=== PATIENT | female | born 1985 | race Caucasian/White ===

== ENCOUNTER 2017-10-02 21:02 | Inpatient (IN) | payer BC ==
[~2017-10-02] VITALS: Ht 162.6 cm; Wt 62.6 kg
[2017-10-02] MEDS ORDERED: diphenhydrAMINE ORAL ELIXIR 12.5 MG/5 ML ML ONE (22:45)
[2017-10-02] MEDS ORDERED: PROCHLORPERAZINE 10 MG/2 ML VIAL. ONE (22:45)
[2017-10-02] MEDS ORDERED: MORPHINE SULFATE 4 MG/ML VIAL. ONE (22:45)
[2017-10-02] MEDS ORDERED: diphenhydrAMINE 50 MG/ML VIAL ONE (22:46)
[2017-10-03 01:51] LABS: CALCIUM 10.3 mg/dL (8.5-10.1); CREATININE 1.2 mg/dL (0.6-1.0); GFR 51.4
[2017-10-03 01:56] LABS: POTASSIUM 2.5 mmol/L (3.5-5.1)
[2017-10-03] MEDS ORDERED: ONDANSETRON PF 4 MG/2 ML VIAL. IV ONE (02:00)
[2017-10-03] MEDS ORDERED: IV NORMAL SALINE 1000ML BAG 1,000 ML IV ONE (02:00)
[2017-10-03] MEDS ORDERED: POTASSIUM CHLORIDE 20 MEQ/15 ML ORAL LIQUID. PO ONE (02:00)
[2017-10-03 02:01] LABS: HEMATOCRIT 50.8 % (36.0-47.0); MEAN CORPUSCULAR HEMOGLOBIN 34 pg (25-35); MEAN CORPUSCULAR HGB CONC 34 g/dL (31-37); MEAN CORPUSCULAR VOLUME 100 fL (79-100); PLATELET COUNT 532 x10^3/uL (140-400); RED BLOOD COUNT 5.06 x10^6/uL (3.50-5.40); RED CELL DISTRIBUTION WIDTH 14.9 % (11.5-14.5); WHITE BLOOD COUNT 21.6 x10^3/uL (4.0-11.0)
[2017-10-03 02:02] LABS: BASO % 0 % (0-3); EOS % 0 % (0-3); LYMPH # 1.6 x10^3/uL (1.0-4.8); LYMPH % 8 % (24-48); MONO # 1.4 x10^3/uL (0.0-1.1); MONO % 6 % (0-9); NEUT # 18.6 x10^3uL (1.8-7.7); NEUT % 86 % (31-73)
[2017-10-03 02:13] LABS: BILIRUBIN,URINE LARGE (NEG); CLARITY,URINE CLEAR; COLOR,URINE AMBER
[2017-10-03 02:14] LABS: AMORPHOUS SEDIMENT,UR PRESENT /HPF; BACTERIA,URINE FEW /HPF (0-FEW); HYALINE CASTS, URINE MANY /HPF; NITRITE,URINE NEGATIVE (NEG); PROTEIN,URINE 100 mg/dL (NEG-TRACE); SQUAMOUS EPITHELIAL CELL,UR FEW /LPF; WBC,URINE OCC /HPF (0-4)
[2017-10-03] MEDS ORDERED: POTASSIUM CHLORIDE 20MEQ 50 ML IV ONE (02:45)
[2017-10-03 02:47] LABS: % BANDS 1 % (0-9); % LYMPHS 7 % (24-48); % MONOS 3 % (0-10); % SEGS 89 % (35-66); PLT ESTIMATE ADEQUATE (ADEQUATE)
[2017-10-03] MEDS: POTASSIUM CHLORIDE 10MEQ 100 ML IV SCH ×6 (03:00→11:30)
--- NOTE | 2017-10-03 03:10 | PHYS DOC ---
Adult General Chief Complaint Chief Complaint: NAUSEA/VOMITING/DIARRHA HPI HPI Patient is a 32 year old female who presents with dehydration. The patient complains of nausea and vomiting. She states she was out in the sun all day 2 days earlier. She does describe prior episodes where she has required admission for hypokalemia secondary to severe dehydration. The patient feels that her symptoms today may represent a similar presentation. She has been unable to keep down any food or fluids. She complains of bilious emesis over the last 2-3 days. Review of Systems Review of Systems Constitutional: Denies fever or chills Eyes: Denies change in visual acuity HENT: Denies nasal congestion or sore throat Respiratory: Denies cough or shortness of breath Cardiovascular: No additional information not addressed in HPI GI: epigastric pain. nausea/emesis : Denies dysuria Musculoskeletal: Denies back pain Integument: Denies rash or skin lesions Neurologic: Denies headache Endocrine: Denies polyuria All other systems were reviewed and found to be within normal limits, except as documented in this note. Current Medications Current Medications Current Medications Medications (Trade) Dose Ordered Sig/Amalia Start Time Stop Time Status Last Admin Dose Admin Ceftriaxone Sodium 50 ml @ 100 mls/hr 1X ONCE 10/03/17 02:00 10/03/17 02:29 DC 10/03/17 02:11 100 MLS/HR Ondansetron HCl (Zofran) 4 mg 1X ONCE 10/03/17 02:00 10/03/17 02:01 DC 10/03/17 02:10 4 MG Potassium Chloride/Water 50 ml @ 50 mls/hr 1X ONCE 10/03/17 02:45 10/03/17 03:44 UNV Potassium Chloride (KCl Oral Soln) 40 meq 1X ONCE 10/03/17 02:00 10/03/17 02:01 DC Sodium Chloride 1,000 ml @ 1,000 mls/hr 1X ONCE 10/03/17 02:00 10/03/17 02:59 DC 10/03/17 03:05 1,000 MLS/HR Allergies Allergies Allergies Coded Allergies Type Severity Reaction Last Updated Verified No Known Drug Allergies 10/03/17 No Physical Exam Physical Exam Constitutional: Well developed, well nourished, no acute distress, non-toxic appearance HENT: Normocephalic, atraumatic, bilateral external ears normal, oropharynx moist Eyes: PERRLA, EOMI, conjunctiva normal Neck: Normal range of motion, no tenderness Cardiovascular:Heart rate regular rhythm Lungs & Thorax: Bilateral breath sounds clear to auscultation Abdomen: Bowel sounds normal, soft, diffusely TTP over epigastrium Skin: Warm, dry, no erythema Extremities: No edema Neurologic: Alert and oriented X 3 Psychologic: Affect normal Current Patient Data Lab Values Laboratory Tests Test 10/02/17 22:00 White Blood Count 21.6 x10^3/uL (4.0-11.0) H Red Blood Count 5.06 x10^6/uL (3.50-5.40) Hemoglobin 17.0 g/dL (12.0-15.5) H Hematocrit 50.8 % (36.0-47.0) H Mean Corpuscular Volume 100 fL (79-100) Mean Corpuscular Hemoglobin 34 pg (25-35) Mean Corpuscular Hemoglobin Concent 34 g/dL (31-37) Red Cell Distribution Width 14.9 % (11.5-14.5) H Platelet Count 532 x10^3/uL (140-400) H Neutrophils (%) (Auto) 86 % (31-73) H Lymphocytes (%) (Auto) 8 % (24-48) L Monocytes (%) (Auto) 6 % (0-9) Eosinophils (%) (Auto) 0 % (0-3) Basophils (%) (Auto) 0 % (0-3) Neutrophils # (Auto) 18.6 x10^3uL (1.8-7.7) H Lymphocytes # (Auto) 1.6 x10^3/uL (1.0-4.8) Monocytes # (Auto) 1.4 x10^3/uL (0.0-1.1) H Eosinophils # (Auto) 0.0 x10^3/uL (0.0-0.7) Basophils # (Auto) 0.0 x10^3/uL (0.0-0.2) Segmented Neutrophils % 89 % (35-66) H Band Neutrophils % 1 % (0-9) Lymphocytes % 7 % (24-48) L Monocytes % 3 % (0-10) Platelet Estimate Adequate (ADEQUATE) Urine Collection Type Unknown Urine Color Katherin Urine Clarity Clear Urine pH 6.0 Urine Specific [place] >=1.030 Urine Protein 100 mg/dL (NEG-TRACE) Urine Glucose (UA) Negative mg/dL (NEG) Urine Ketones (Stick) 15 mg/dL (NEG) Urine Blood Small (NEG) Urine Nitrite Negative (NEG) Urine Bilirubin Large (NEG) Urine Urobilinogen Dipstick 1.0 mg/dL (0.2 mg/dL) Urine Leukocyte Esterase Negative (NEG) Urine RBC 3-5 /HPF (0-2) Urine WBC Occ /HPF (0-4) Urine Squamous Epithelial Cells Few /LPF Urine Amorphous Sediment Present /HPF Urine Bacteria Few /HPF (0-FEW) Urine Hyaline Casts Many /HPF Urine Mucus Marked /LPF Sodium Level 136 mmol/L (136-145) Potassium Level 2.5 mmol/L (3.5-5.1) *L Chloride Level 90 mmol/L (98-107) L Carbon Dioxide Level 33 mmol/L (21-32) H Anion Gap 13 (6-14) Blood Urea Nitrogen 13 mg/dL (7-20) Creatinine 1.2 mg/dL (0.6-1.0) H Estimated GFR (Cockcroft-Gault) 51.4 Glucose Level 128 mg/dL (70-99) H Calcium Level 10.3 mg/dL (8.5-10.1) H Total Bilirubin 0.6 mg/dL (0.2-1.0) Direct Bilirubin 0.2 mg/dL (0.0-0.2) Aspartate Amino Transferase (AST) 77 U/L (15-37) H Alanine Aminotransferase (ALT) 32 U/L (14-59) Alkaline Phosphatase 57 U/L (46-116) Creatine Kinase 1724 U/L (26-192) H Total Protein 9.9 g/dL (6.4-8.2) H Albumin 4.7 g/dL (3.4-5.0) Laboratory Tests 10/02/17 22:00 Laboratory Tests 10/02/17 22:00 EKG EKG [] Radiology/Procedures Radiology/Procedures RUQ US: unremarkable. Course & Med Decision Making Course & Med Decision Making Pertinent Labs and Imaging studies reviewed. (See chart for details) Patient was evaluated in the emergency department for intractable nausea and vomiting. She had attempted to use Phenergan at home without relief of her symptoms. She was found to have a potassium of 2.5. Her creatinine kinase was mildly elevated, over 1100. In the emergency department, she was given 3 L of normal saline. She was eventually able to urinate. She had a white blood cell count but no overt source for infection was identified. Prior to return of urine , she was given 1 g of Rocephin. Attempts were made to give by mouth potassium replacement in the ER but the patient was unable to tolerate this. Subsequently , she is admitted to the hospital and IV potassium is initiated. The patient had bilirubin her urine. LFTs are added to her lab panel along with right upper quadrant ultrasound. Overall, her abdominal exam is benign. Dragon Disclaimer Dragon Disclaimer This electronic medical record was generated, in whole or in part, using a voice recognition dictation system. Departure Departure Referrals: NO PCP (PCP) ARMIDA COUCH DO Oct 03, 2017 03:09
[2017-10-03] MEDS ORDERED: ONDANSETRON PF 4 MG/2 ML VIAL. IV PRN (03:15)
[2017-10-03] MEDS: IV NORMAL SALINE 1000ML BAG 1,000 ML IV SCH ×4 (03:15→19:27)
[2017-10-03 03:29] LABS: ALBUMIN 4.7 g/dL (3.4-5.0); DIRECT BILIRUBIN 0.2 mg/dL (0.0-0.2); TOTAL BILIRUBIN 0.6 mg/dL (0.2-1.0); TOTAL PROTEIN 9.9 g/dL (6.4-8.2)
[2017-10-03 03:55] VITALS: BP 146/92
[2017-10-03] MEDS: MORPHINE SULFATE 4 MG/ML VIAL. IV PRN ×5 (04:07→20:50)
--- NOTE | 2017-10-03 04:30 | RAD ---
Right upper quadrant abdominal ultrasound History: VOMITING Comparison: None. Technique: Transabdominal ultrasound images are obtained. Findings: The pancreas is not well visualized due to overlying bowel gas. Liver is normal in echogenicity. Right hepatic lobe measures 17.6 cm, normal. No focal hepatic masses are identified. Portal flow is hepatopedal. Gallbladder is surgically absent. Common bile duct caliber is normal measuring 5 mm in diameter. The right kidney measures 11.1 cm in length and is without evidence of obstruction or stone. IVC is unremarkable. IMPRESSION: Unremarkable right upper quadrant ultrasound. Electronically signed by: Fuentes Strickland MD (10/03/2017 4:27 AM) [facility]
[2017-10-03] MEDS ORDERED: AMIT10TA PO (07:27)
[2017-10-03] MEDS ORDERED: FENO160T PO (07:27)
[2017-10-03] MEDS ORDERED: DEXL60CA2 PO (07:27)
[2017-10-03] MEDS ORDERED: CITA20TA6 PO (07:27)
[2017-10-03 07:38] VITALS: BP 120/88
[2017-10-03] MEDS: FENOFIBRATE,MICRONIZED 134 MG CAPSULE PO SCH (09:00)
[2017-10-03] MEDS: CITALOPRAM 20 MG TABLET. PO SCH (09:00)
[2017-10-03] MEDS: NICOTINE 21MG PATCH. TD SCH (10:14)
[2017-10-03] MEDS: POTASSIUM CHLORIDE 20 MEQ TABLET.ER. PO SCH ×2 (10:15→17:00)
[2017-10-03] MEDS: PANTOPRAZOLE 40 MG TABLET.DR. PO SCH (10:15)
[2017-10-03] MEDS: ONDANSETRON PF 4 MG/2 ML VIAL. IV PRN ×3 (10:28→23:14)
[2017-10-03 11:02] VITALS: BP 122/91
--- NOTE | 2017-10-03 11:29 | PDOC1 ---
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 Some diarrhea with voluminous vomiting but no fever. No recent sick contacts or ill travels. 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 Nontoxic appearing but admitted because of severe signs of dehydration with hypernatremia at 156, critical hypokalemia 2.8, elevated creatinine 1.2 with a GFR of 50s. Otherwise no known significant past medical history. She did have history of cholecystectomy some 4 or 5 years ago and tends to have some loose stool since then. Maybe history of lupus in the mother. She feels better and is actually very thirsty and is munching on ice chips. She feels hesitant to start a regular diet but is tolerating liquid diet fine. I will increase potassium supplements, increase IV fluid rate and liquid diet then ADA T. I did check for JOHN, TSH and ESR. One more night of IV fluids and home tomorrow if labs and clinically continues to do better Does admit that she went outdoors and did not adequately take any water,she felt dehydrated herself Past Medical History Cardiovascular: No pertinent hx Pulmonary: No pertinent hx GI: No pertinent hx Heme/Onc: No pertinent hx Hepatobiliary: No pertinent hx Psych: No pertinent hx, Depression Rheumatologic: No pertinent hx Infectious disease: No pertinent hx ENT: No pertinent hx Renal/: No pertinent hx Endocrine: No pertinent hx Dermatology: No pertinent hx Past Surgical History Past Surgical History: Cholecystectomy Family History Family History: Hypertension, Other (Lupus in the mother) Social History Smoke: No ALCOHOL: none Drugs: None Current Problem List Problem List Problems Medical Problems: (1) Dehydration Status: Acute (2) Hypokalemia Status: Acute (3) Rhabdomyolysis Status: Acute Current Medications Current Medications Current Medications Sodium Chloride 1,000 ml @ 1,000 mls/hr 1X ONCE IV Last administered on at 03:05; Start 10/03/17 at 02:00; Stop 10/03/17 at 02:59; Status DC Ceftriaxone Sodium 50 ml @ 100 mls/hr 1X ONCE IV Last administered on at 02:11; Start 10/03/17 at 02:00; Stop 10/03/17 at 02:29; Status DC Potassium Chloride (KCl Oral Soln) 40 meq 1X ONCE PO ; Start 10/03/17 at 02:00 ; Stop 10/03/17 at 02:01; Status DC Ondansetron HCl (Zofran) 4 mg 1X ONCE IV Last administered on 10/03/17at 02:10 ; Start 10/03/17 at 02:00; Stop 10/03/17 at 02:01; Status DC Potassium Chloride/Water 50 ml @ 50 mls/hr 1X ONCE IV ; Start 10/03/17 at 02:45 ; Stop 10/03/17 at 03:44; Status UNV Potassium Chloride/Water 100 ml @ 100 mls/hr Q1H IV Last administered on at 04:08; Start 10/03/17 at 03:00; Stop 10/03/17 at 04:59; Status DC Ondansetron HCl (Zofran) 4 mg PRN Q8HRS PRN IV NAUSEA/VOMITING Last administered on 10/03/17at 04:07; Start 10/03/17 at 03:15; Stop 10/03/17 at 08:43 ; Status DC Morphine Sulfate (Morphine Sulfate) 4 mg PRN Q2HR PRN IV PAIN Last administered on 10/03/17at 07:20; Start 10/03/17 at 03:15; Stop 10/03/17 at 08:30 ; Status DC Sodium Chloride 1,000 ml @ 150 mls/hr Q6H40M IV ; Start 10/03/17 at 03:15; Stop 10/04/17 at 03:14 Potassium Chloride/Water 100 ml @ 100 mls/hr Q1H IV Last administered on at 10:12; Start 10/03/17 at 05:00; Stop 10/03/17 at 09:01; Status DC Nicotine (Nicoderm Cq 21mg) 1 patch DAILY TD Last administered on 10/03/17at 10: 14; Start 10/03/17 at 09:00 Morphine Sulfate (Morphine Sulfate) 4 mg PRN Q2HR PRN IV PAIN SEVERE Last administered on 10/03/17at 10:28; Start 10/03/17 at 08:30 Ondansetron HCl (Zofran) 4 mg PRN Q6HRS PRN IV NAUSEA/VOMITING Last administered on 10/03/17at 10:28; Start 10/03/17 at 08:45 Potassium Chloride (Klor-Con) 40 meq BIDWMEALS PO Last administered on at 10:15; Start 10/03/17 at 09:00 Amitriptyline HCl (Elavil) 10 mg QHS PO ; Start 10/03/17 at 21:00 Citalopram Hydrobromide (CeleXA) 20 mg DAILY PO ; Start 10/03/17 at 09:00 Pantoprazole Sodium (Protonix) 40 mg DAILYAC PO Last administered on 10/03/17at 10:15; Start 10/03/17 at 09:00 Fenofibrate (Lofibra) 134 mg DAILY PO ; Start 10/03/17 at 09:00 Diphenhydramine HCl (Benadryl Oral Elixir) 12.5 mg STK-MED ONCE .ROUTE ; Start 10/02/17 at 22:45; Stop 10/03/17 at 10:22; Status DC Prochlorperazine Edisylate (Compazine) 10 mg STK-MED ONCE .ROUTE ; Start at 22:45; Stop 10/03/17 at 10:22; Status DC Morphine Sulfate (Morphine Sulfate) 4 mg STK-MED ONCE .ROUTE ; Start 10/02/17 at 22:45; Stop 10/03/17 at 10:22; Status DC Diphenhydramine HCl (Benadryl) 50 mg STK-MED ONCE .ROUTE ; Start 10/02/17 at 22: 46; Stop 10/03/17 at 10:22; Status DC Active Scripts Active Reported Dexilant (Dexlansoprazole) 60 Mg Cap. 1 Cap PO DAILY Fenofibrate 160 Mg Tablet 1 Tab PO DAILY Amitriptyline Hcl 10 Mg Tablet 1 Tab PO QHS Citalopram Hbr (Citalopram Hydrobromide) 20 Mg Tablet 1 Tab PO DAILY Allergies Allergies: Coded Allergies: Corticosteroids (Glucocorticoids) (Verified Allergy, Unknown, 10/03/17) Penicillins (Verified Allergy, Unknown, 10/03/17) ROS Review of System as per , the rest of ROS 14 point negative Physical Exam General: Alert, Oriented X3, Cooperative, No acute distress HEENT: Atraumatic, PERRLA, Other (dry lips and tongue) Lungs: Clear to auscultation, Normal air movement Heart: S1S2, RRR, no thrills, no rubs, no gallops, no murmurs Cardiovascular: S1, S2 Breasts: Normal, Rt breast nml w/o mass, Lt breast nml w/o mass, Nipples normal Abdomen: Normal bowel sounds, Soft, No tenderness, No hepatosplenomegaly, No masses Rectal Exam: not examined PELVIC: Nml ext genitalia Extremities: No clubbing, No cyanosis, No edema, Normal pulses, No tenderness/ swelling Skin: No rashes, No breakdown, No significant lesion Neuro: Normal gait, Normal speech, Strength at 5/5 X4 ext, Normal tone, Sensation intact, Cranial nerves 3-12 NL, Reflexes 2+ Psych/Mental Status: Mental status NL, Mood NL Vitals Vitals Vital Signs Date Time Temp Pulse Resp B/P (MAP) Pulse Ox O2 Delivery O2 Flow Rate FiO2 10/03/17 11:02 97.9 81 18 122/91 (101) 98 Room Air 97.9 Labs Labs Laboratory Tests Test 10/02/17 22:00 10/03/17 09:13 White Blood Count 21.6 x10^3/uL (4.0-11.0) Red Blood Count 5.06 x10^6/uL (3.50-5.40) Hemoglobin 17.0 g/dL (12.0-15.5) Hematocrit 50.8 % (36.0-47.0) Mean Corpuscular Volume 100 fL (79-100) Mean Corpuscular Hemoglobin 34 pg (25-35) Mean Corpuscular Hemoglobin Concent 34 g/dL (31-37) Red Cell Distribution Width 14.9 % (11.5-14.5) Platelet Count 532 x10^3/uL (140-400) Neutrophils (%) (Auto) 86 % (31-73) Lymphocytes (%) (Auto) 8 % (24-48) Monocytes (%) (Auto) 6 % (0-9) Eosinophils (%) (Auto) 0 % (0-3) Basophils (%) (Auto) 0 % (0-3) Neutrophils # (Auto) 18.6 x10^3uL (1.8-7.7) Lymphocytes # (Auto) 1.6 x10^3/uL (1.0-4.8) Monocytes # (Auto) 1.4 x10^3/uL (0.0-1.1) Eosinophils # (Auto) 0.0 x10^3/uL (0.0-0.7) Basophils # (Auto) 0.0 x10^3/uL (0.0-0.2) Segmented Neutrophils % 89 % (35-66) Band Neutrophils % 1 % (0-9) Lymphocytes % 7 % (24-48) Monocytes % 3 % (0-10) Platelet Estimate Adequate (ADEQUATE) Urine Collection Type Unknown Urine Color Katherin Urine Clarity Clear Urine pH 6.0 Urine Specific [place] >=1.030 Urine Protein 100 mg/dL (NEG-TRACE) Urine Glucose (UA) Negative mg/dL (NEG) Urine Ketones (Stick) 15 mg/dL (NEG) Urine Blood Small (NEG) Urine Nitrite Negative (NEG) Urine Bilirubin Large (NEG) Urine Urobilinogen Dipstick 1.0 mg/dL (0.2 mg/dL) Urine Leukocyte Esterase Negative (NEG) Urine RBC 3-5 /HPF (0-2) Urine WBC Occ /HPF (0-4) Urine Squamous Epithelial Cells Few /LPF Urine Amorphous Sediment Present /HPF Urine Bacteria Few /HPF (0-FEW) Urine Hyaline Casts Many /HPF Urine Mucus Marked /LPF Sodium Level 136 mmol/L (136-145) Potassium Level 2.5 mmol/L (3.5-5.1) Chloride Level 90 mmol/L (98-107) Carbon Dioxide Level 33 mmol/L (21-32) Anion Gap 13 (6-14) Blood Urea Nitrogen 13 mg/dL (7-20) Creatinine 1.2 mg/dL (0.6-1.0) Estimated GFR (Cockcroft-Gault) 51.4 Glucose Level 128 mg/dL (70-99) Calcium Level 10.3 mg/dL (8.5-10.1) Total Bilirubin 0.6 mg/dL (0.2-1.0) Direct Bilirubin 0.2 mg/dL (0.0-0.2) Aspartate Amino Transf (AST/SGOT) 77 U/L (15-37) Alanine Aminotransferase (ALT/SGPT) 32 U/L (14-59) Alkaline Phosphatase 57 U/L (46-116) Creatine Kinase 1724 U/L (26-192) Total Protein 9.9 g/dL (6.4-8.2) Albumin 4.7 g/dL (3.4-5.0) Erythrocyte Sedimentation Rate 4 (0-25) Thyroid Stimulating Hormone (TSH) 3.137 uIU/mL (0.358-3.74) Laboratory Tests Test 10/02/17 22:00 10/03/17 09:13 White Blood Count 21.6 x10^3/uL (4.0-11.0) Red Blood Count 5.06 x10^6/uL (3.50-5.40) Hemoglobin 17.0 g/dL (12.0-15.5) Hematocrit 50.8 % (36.0-47.0) Mean Corpuscular Volume 100 fL (79-100) Mean Corpuscular Hemoglobin 34 pg (25-35) Mean Corpuscular Hemoglobin Concent 34 g/dL (31-37) Red Cell Distribution Width 14.9 % (11.5-14.5) Platelet Count 532 x10^3/uL (140-400) Neutrophils (%) (Auto) 86 % (31-73) Lymphocytes (%) (Auto) 8 % (24-48) Monocytes (%) (Auto) 6 % (0-9) Eosinophils (%) (Auto) 0 % (0-3) Basophils (%) (Auto) 0 % (0-3) Neutrophils # (Auto) 18.6 x10^3uL (1.8-7.7) Lymphocytes # (Auto) 1.6 x10^3/uL (1.0-4.8) Monocytes # (Auto) 1.4 x10^3/uL (0.0-1.1) Eosinophils # (Auto) 0.0 x10^3/uL (0.0-0.7) Basophils # (Auto) 0.0 x10^3/uL (0.0-0.2) Segmented Neutrophils % 89 % (35-66) Band Neutrophils % 1 % (0-9) Lymphocytes % 7 % (24-48) Monocytes % 3 % (0-10) Platelet Estimate Adequate (ADEQUATE) Urine Collection Type Unknown Urine Color Katherin Urine Clarity Clear Urine pH 6.0 Urine Specific [place] >=1.030 Urine Protein 100 mg/dL (NEG-TRACE) Urine Glucose (UA) Negative mg/dL (NEG) Urine Ketones (Stick) 15 mg/dL (NEG) Urine Blood Small (NEG) Urine Nitrite Negative (NEG) Urine Bilirubin Large (NEG) Urine Urobilinogen Dipstick 1.0 mg/dL (0.2 mg/dL) Urine Leukocyte Esterase Negative (NEG) Urine RBC 3-5 /HPF (0-2) Urine WBC Occ /HPF (0-4) Urine Squamous Epithelial Cells Few /LPF Urine Amorphous Sediment Present /HPF Urine Bacteria Few /HPF (0-FEW) Urine Hyaline Casts Many /HPF Urine Mucus Marked /LPF Sodium Level 136 mmol/L (136-145) Potassium Level 2.5 mmol/L (3.5-5.1) Chloride Level 90 mmol/L (98-107) Carbon Dioxide Level 33 mmol/L (21-32) Anion Gap 13 (6-14) Blood Urea Nitrogen 13 mg/dL (7-20) Creatinine 1.2 mg/dL (0.6-1.0) Estimated GFR (Cockcroft-Gault) 51.4 Glucose Level 128 mg/dL (70-99) Calcium Level 10.3 mg/dL (8.5-10.1) Total Bilirubin 0.6 mg/dL (0.2-1.0) Direct Bilirubin 0.2 mg/dL (0.0-0.2) Aspartate Amino Transf (AST/SGOT) 77 U/L (15-37) Alanine Aminotransferase (ALT/SGPT) 32 U/L (14-59) Alkaline Phosphatase 57 U/L (46-116) Creatine Kinase 1724 U/L (26-192) Total Protein 9.9 g/dL (6.4-8.2) Albumin 4.7 g/dL (3.4-5.0) Erythrocyte Sedimentation Rate 4 (0-25) Thyroid Stimulating Hormone (TSH) 3.137 uIU/mL (0.358-3.74) VTE Prophylaxis Ordered VTE Prophylaxis Devices: Yes VTE Pharmacological Prophylaxi: Yes Assessment/Plan Assessment/Plan Severe dehydration Hypernatremia Critical hypokalemia secondary to GI loss AK I VMN, prerenal, secondary to GI losses Depression NOS Plan: Increase IV fluid to 1 50 mL an hour Check JOHN TSH and a sedimentation rate just because (hx lupus in mother and hx vomiting in past but not to this extent) Increased potassium to 40 by mouth twice a day Labs tomorrow If labs are better and continues to do clinically well at home tomorrow GI soft for now then TONE Dickson RN, MD Oct 03, 2017 11:29
[2017-10-03 15:59] VITALS: BP 120/83
[2017-10-03 19:39] VITALS: BP 141/97
[2017-10-03] MEDS ORDERED: AMITRIPTYLINE HCL 10 MG TABLET. PO SCH (21:00)
[2017-10-03 23:56] VITALS: BP 133/94
[2017-10-04] MEDS: IV NORMAL SALINE 1000ML BAG 1,000 ML IV SCH (02:17)
[2017-10-04 03:20] VITALS: BP 149/91
[2017-10-04 07:00] VITALS: BP 140/98
[2017-10-04] MEDS: POTASSIUM CHLORIDE 20 MEQ TABLET.ER. PO SCH (07:45)
[2017-10-04] MEDS: FENOFIBRATE,MICRONIZED 134 MG CAPSULE PO SCH (07:46)
[2017-10-04] MEDS: CITALOPRAM 20 MG TABLET. PO SCH (07:46)
[2017-10-04] MEDS: NICOTINE 21MG PATCH. TD SCH (07:46)
[2017-10-04] MEDS: PANTOPRAZOLE 40 MG TABLET.DR. PO SCH (07:46)
[2017-10-04] MEDS: ONDANSETRON PF 4 MG/2 ML VIAL. IV PRN (07:58)
[2017-10-04] MEDS: MORPHINE SULFATE 4 MG/ML VIAL. IV PRN (09:05)
[2017-10-04 09:19] LABS: BASO # 0.1 x10^3/uL (0.0-0.2); BASO % 1 % (0-3); EOS % 0 % (0-3); HEMATOCRIT 39.8 % (36.0-47.0); HEMOGLOBIN 13.3 g/dL (12.0-15.5); LYMPH # 2.6 x10^3/uL (1.0-4.8); LYMPH % 21 % (24-48); MEAN CORPUSCULAR HEMOGLOBIN 34 pg (25-35); MEAN CORPUSCULAR HGB CONC 33 g/dL (31-37); MEAN CORPUSCULAR VOLUME 101 fL (79-100); MONO # 0.9 x10^3/uL (0.0-1.1); MONO % 7 % (0-9); NEUT # 9.3 x10^3uL (1.8-7.7); NEUT % 72 % (31-73); PLATELET COUNT 373 x10^3/uL (140-400); RED BLOOD COUNT 3.95 x10^6/uL (3.50-5.40); WHITE BLOOD COUNT 12.9 x10^3/uL (4.0-11.0)
[2017-10-04 09:28] LABS: CALCIUM 7.9 mg/dL (8.5-10.1); CREATININE 0.7 mg/dL (0.6-1.0); GFR 95.8; POTASSIUM 3.1 mmol/L (3.5-5.1)
--- NOTE | 2017-10-04 11:52 | PDOC3 ---
Discharge Summary Visit Information Date of Admission: Oct 03, 2017 Date of Discharge: Oct 04, 2017 Admitting Diagnosis Comment: Severe dehydration Hypernatremia Critical hypokalemia secondary to GI loss AK I VMN, prerenal, secondary to GI losses Depression NOS Final Diagnosis Problems Medical Problems: (1) Dehydration Status: Acute (2) Hypokalemia Status: Acute (3) Rhabdomyolysis Status: Acute Brief Hospital Course Allergies Allergies Coded Allergies Type Severity Reaction Last Updated Verified Corticosteroids (Glucocorticoids) Allergy Unknown 10/03/17 Yes Penicillins Allergy Unknown 10/03/17 Yes Vital Signs Vital Signs Date Time Temp Pulse Resp B/P (MAP) Pulse Ox O2 Delivery O2 Flow Rate FiO2 10/04/17 10:20 99 Room Air 10/04/17 07:00 98.2 75 16 140/98 (112) 98.2 Lab Results Laboratory Tests Test 10/02/17 22:00 10/03/17 09:13 10/04/17 08:52 White Blood Count 21.6 x10^3/uL (4.0-11.0) 12.9 x10^3/uL (4.0-11.0) Red Blood Count 5.06 x10^6/uL (3.50-5.40) 3.95 x10^6/uL (3.50-5.40) Hemoglobin 17.0 g/dL (12.0-15.5) 13.3 g/dL (12.0-15.5) Hematocrit 50.8 % (36.0-47.0) 39.8 % (36.0-47.0) Mean Corpuscular Volume 100 fL (79-100) 101 fL (79-100) Mean Corpuscular Hemoglobin 34 pg (25-35) 34 pg (25-35) Mean Corpuscular Hemoglobin Concent 34 g/dL (31-37) 33 g/dL (31-37) Red Cell Distribution Width 14.9 % (11.5-14.5) 15.0 % (11.5-14.5) Platelet Count 532 x10^3/uL (140-400) 373 x10^3/uL (140-400) Neutrophils (%) (Auto) 86 % (31-73) 72 % (31-73) Lymphocytes (%) (Auto) 8 % (24-48) 21 % (24-48) Monocytes (%) (Auto) 6 % (0-9) 7 % (0-9) Eosinophils (%) (Auto) 0 % (0-3) 0 % (0-3) Basophils (%) (Auto) 0 % (0-3) 1 % (0-3) Neutrophils # (Auto) 18.6 x10^3uL (1.8-7.7) 9.3 x10^3uL (1.8-7.7) Lymphocytes # (Auto) 1.6 x10^3/uL (1.0-4.8) 2.6 x10^3/uL (1.0-4.8) Monocytes # (Auto) 1.4 x10^3/uL (0.0-1.1) 0.9 x10^3/uL (0.0-1.1) Eosinophils # (Auto) 0.0 x10^3/uL (0.0-0.7) 0.0 x10^3/uL (0.0-0.7) Basophils # (Auto) 0.0 x10^3/uL (0.0-0.2) 0.1 x10^3/uL (0.0-0.2) Segmented Neutrophils % 89 % (35-66) Band Neutrophils % 1 % (0-9) Lymphocytes % 7 % (24-48) Monocytes % 3 % (0-10) Platelet Estimate Adequate (ADEQUATE) Urine Collection Type Unknown Urine Color Katherin Urine Clarity Clear Urine pH 6.0 Urine Specific [place] >=1.030 Urine Protein 100 mg/dL (NEG-TRACE) Urine Glucose (UA) Negative mg/dL (NEG) Urine Ketones (Stick) 15 mg/dL (NEG) Urine Blood Small (NEG) Urine Nitrite Negative (NEG) Urine Bilirubin Large (NEG) Urine Urobilinogen Dipstick 1.0 mg/dL (0.2 mg/dL) Urine Leukocyte Esterase Negative (NEG) Urine RBC 3-5 /HPF (0-2) Urine WBC Occ /HPF (0-4) Urine Squamous Epithelial Cells Few /LPF Urine Amorphous Sediment Present /HPF Urine Bacteria Few /HPF (0-FEW) Urine Hyaline Casts Many /HPF Urine Mucus Marked /LPF Sodium Level 136 mmol/L (136-145) 136 mmol/L (136-145) Potassium Level 2.5 mmol/L (3.5-5.1) 3.1 mmol/L (3.5-5.1) Chloride Level 90 mmol/L (98-107) 99 mmol/L (98-107) Carbon Dioxide Level 33 mmol/L (21-32) 28 mmol/L (21-32) Anion Gap 13 (6-14) 9 (6-14) Blood Urea Nitrogen 13 mg/dL (7-20) 5 mg/dL (7-20) Creatinine 1.2 mg/dL (0.6-1.0) 0.7 mg/dL (0.6-1.0) Estimated GFR (Cockcroft-Gault) 51.4 95.8 Glucose Level 128 mg/dL (70-99) 72 mg/dL (70-99) Calcium Level 10.3 mg/dL (8.5-10.1) 7.9 mg/dL (8.5-10.1) Total Bilirubin 0.6 mg/dL (0.2-1.0) Direct Bilirubin 0.2 mg/dL (0.0-0.2) Aspartate Amino Transf (AST/SGOT) 77 U/L (15-37) Alanine Aminotransferase (ALT/SGPT) 32 U/L (14-59) Alkaline Phosphatase 57 U/L (46-116) Creatine Kinase 1724 U/L (26-192) Total Protein 9.9 g/dL (6.4-8.2) Albumin 4.7 g/dL (3.4-5.0) Erythrocyte Sedimentation Rate 4 (0-25) Thyroid Stimulating Hormone (TSH) 3.137 uIU/mL (0.358-3.74) Laboratory Tests Test 10/04/17 08:52 White Blood Count 12.9 x10^3/uL (4.0-11.0) Red Blood Count 3.95 x10^6/uL (3.50-5.40) Hemoglobin 13.3 g/dL (12.0-15.5) Hematocrit 39.8 % (36.0-47.0) Mean Corpuscular Volume 101 fL (79-100) Mean Corpuscular Hemoglobin 34 pg (25-35) Mean Corpuscular Hemoglobin Concent 33 g/dL (31-37) Red Cell Distribution Width 15.0 % (11.5-14.5) Platelet Count 373 x10^3/uL (140-400) Neutrophils (%) (Auto) 72 % (31-73) Lymphocytes (%) (Auto) 21 % (24-48) Monocytes (%) (Auto) 7 % (0-9) Eosinophils (%) (Auto) 0 % (0-3) Basophils (%) (Auto) 1 % (0-3) Neutrophils # (Auto) 9.3 x10^3uL (1.8-7.7) Lymphocytes # (Auto) 2.6 x10^3/uL (1.0-4.8) Monocytes # (Auto) 0.9 x10^3/uL (0.0-1.1) Eosinophils # (Auto) 0.0 x10^3/uL (0.0-0.7) Basophils # (Auto) 0.1 x10^3/uL (0.0-0.2) Sodium Level 136 mmol/L (136-145) Potassium Level 3.1 mmol/L (3.5-5.1) Chloride Level 99 mmol/L (98-107) Carbon Dioxide Level 28 mmol/L (21-32) Anion Gap 9 (6-14) Blood Urea Nitrogen 5 mg/dL (7-20) Creatinine 0.7 mg/dL (0.6-1.0) Estimated GFR (Cockcroft-Gault) 95.8 Glucose Level 72 mg/dL (70-99) Calcium Level 7.9 mg/dL (8.5-10.1) Brief Hospital Course Ms. 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 Some diarrhea with voluminous vomiting but no fever. No recent sick contacts or ill travels. 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 Nontoxic appearing but admitted because of severe signs of dehydration with hypernatremia at 156, critical hypokalemia 2.8, elevated creatinine 1.2 with a GFR of 50s. Otherwise no known significant past medical history. She did have history of cholecystectomy some 4 or 5 years ago and tends to have some loose stool since then. Maybe history of lupus in the mother. She feels better and is actually very thirsty and is munching on ice chips. She feels hesitant to start a regular diet but is tolerating liquid diet fine. I will increase potassium supplements, increase IV fluid rate and liquid diet then ADA T. I did check for JOHN, TSH and ESR. One more night of IV fluids and home tomorrow if labs and clinically continues to do better Does admit that she went outdoors and did not adequately take any water,she felt dehydrated herself COURSE: Admitted 24-48 hrs. after IV fluid hydration labs are much better and feeling better. Potassium up to 3.1 from 2+ Sodium better at 136. Creatinine still normal. WBC down to 12.0 from 21.6. Able to go home, no PT needs, still has some potassium pills at home. Doing better Discharge time less than 30 minutes Consults performed none Discharge Information Condition at Discharge: Improved, Stable Disposition/Orders: D/C to Home Scheduled Amitriptyline Hcl (Amitriptyline Hcl) 10 Mg Tablet, 1 TAB PO QHS, #30 Ref 1 ( Reported) Entered as Reported by: TANJA LUNDBERG on 10/03/17726 Last Taken: Unknown Dose on Unknown Date & Time Last Action: Continued on 10/03/17842 by TONE SAUCEDA Citalopram Hydrobromide (Citalopram Hbr) 20 Mg Tablet, 1 TAB PO DAILY, #30 Ref 5 (Reported) Entered as Reported by: TANJA LUNDBERG on 10/03/17726 Last Taken: Unknown Dose on Unknown Date & Time Last Action: Continued on 10/03/17842 by TONE SAUCEDA Dexlansoprazole (Dexilant) 60 Mg Cap., 1 CAP PO DAILY, #90 Ref 3 (Reported) Entered as Reported by: TANJA LUNDBERG on 10/03/17726 Last Taken: Unknown Dose on Unknown Date & Time Last Action: Converted on 10/03/17842 by TONE SAUCEDA Fenofibrate (Fenofibrate) 160 Mg Tablet, 1 TAB PO DAILY, #30 Ref 5 (Reported) Entered as Reported by: TANJA LUNDBERG on 10/03/17726 Last Taken: Unknown Dose on Unknown Date & Time Last Action: Converted on 10/03/17842 by TONE ABRAHAM MD Oct 04, 2017 11:52
[2017-10-06 15:32] LABS: ANA INTERP Negative (.)
== END 2017-10-04 11:00 | disposition home or self-care (01) | DRG 557 ==
LOC: ER 21:02 → 6 SOUTH 10-03 02:50 → OBSVTOIN 10-03 08:10
PROVIDERS: ADMIT Internal Medicine; ATTEND Internal Medicine
DX: M62.82 Rhabdomyolysis (principal); N17.0 Acute kidney failure with tubular necrosis; E87.0 Hyperosmolality and hypernatremia; E86.0 Dehydration; E87.6 Hypokalemia; F32.9 Major depressive disorder, single episode, unspecified; Z90.49 Acquired absence of other specified parts of digestive tract; Z82.49 Family history of ischemic heart disease and other diseases of the circulatory system; Z88.0 Allergy status to penicillin; Z88.8 Allergy status to other drugs, medicaments and biological substances
CPT/HCPCS: 36415; 76705; 80048; 80076; 81001; 82550; 84443; 85007; 85025; 85651; 86038; 96361; 96365; 96375; G0378; G0379; J0690; J2270; J2405; J3480; J7030; 99285-25